=== PATIENT | male | born 1955 | race Caucasian/White ===

== ENCOUNTER 2025-02-28 14:34 | Outpatient (CLI) | payer BC, SELFPAY | END 2025-02-28 14:35 | disposition home or self-care (01) | LOC: NFLDREF 03-01 13:35 | PROVIDERS: Visit Provider Family Medicine | DX: Z00.00 Encounter for general adult medical examination without abnormal findings (principal); Z12.5 Encounter for screening for malignant neoplasm of prostate | CPT/HCPCS: 80053; G0103 ==